=== PATIENT | female | born 1980 | race Hispanic/Latino ===

== ENCOUNTER → 2023-01-31 | Outpatient (CLI) | payer BC ==
[~2023-01-31] MED LIST: FERR159T2 PO; LISI5TAB21 PO; MECL-226 PO; SERT-439 PO; TRAM50TA4 PO
== END | disposition home or self-care (01) ==
LOC: RAH 15:10
PROVIDERS: ATTEND Nurse Practitioner Family
DX: Z12.31 Encounter for screening mammogram for malignant neoplasm of breast (principal)
CPT/HCPCS: 77067

== ENCOUNTER → 2024-07-08 | Outpatient (CLI) | payer BC ==
[~2024-07-08] MED LIST changes: +proPOFol 10 MG/ML 20ML VIAL IV ONE
== END | disposition home or self-care (01) ==
LOC: RAH 12:47
PROVIDERS: ATTEND Obstetrics & Gynecology
DX: Z12.31 Encounter for screening mammogram for malignant neoplasm of breast (principal)
CPT/HCPCS: 77067; J2704; J3490

== ENCOUNTER → 2024-08-08 | Outpatient (CLI) | payer BC ==
[~2024-08-08] MED LIST changes: -proPOFol 10 MG/ML 20ML VIAL IV ONE
--- NOTE | 2024-08-09 09:32 | HMCIMG ---
Exam Type: MAMMO DX UNILATERAL LEFT, US BREAST COMPLETE UNILATERAL Clinical Information: LEFT BREAST US PREFORMED WELL PALPABLE MASS FELT ON THE LEFT BREAST SINCE PT LAST MMG 07/08/2024. PLACED LOCAL MARKER ON AREA. PER PT SHE ONLY FEELS PAIN IN THE AREA WHERE THE LUMP IS BEING FELT. PT DENIES NIPPLE DISCHARGE/SWELLING. SPOT VIEWS TAKEN OF AREA ALONG WITH LT BREAST US. *FAMILY HX OF BREAST CA: PATERNAL AUNT, PATERNAL COUSIN Comparison: July 08, 2024 TECHNIQUE: Mammogram was performed with CC and MLO and ML projections. CAD was performed. CAD shows no worrisome regions. FINDINGS: The breasts are extremely dense, which lowers the sensitivity of mammography. Spot compression views of the upper outer quadrant of the left breast show persistent density at the 3:00 position, underwent a clinically palpable lump region. Left breast ultrasound was also performed. It shows a 3:00 position hypoechoic irregular complex looking probably solid mass measuring at least 2.4 x 2.3 x 1.2 cm, with ill-defined margins. Simple cysts of the 1:00, 10:00 position seen and there are benign-appearing lymph nodes with fatty hilum within the axillary region left side. IMPRESSION: Worrisome mass of the left breast 3:00 position. It is well identified on ultrasound and therefore I recommend ultrasound-guided biopsy. BI-RADS: CATEGORY 4: SUSPICIOUS ABNORMALITY - BIOPSY SHOULD BE CONSIDERED Note: A negative x-ray should not delay biopsy if a dominant or clinically suspicious mass is present, since 8-10% of cancers are not identified by mammography. Dense breasts particularly, may obscure an underlying neoplasm.
== END | disposition home or self-care (01) ==
LOC: RAH 14:03
PROVIDERS: ATTEND Obstetrics & Gynecology
DX: N60.02 Solitary cyst of left breast (principal); N63.25 Unspecified lump in the left breast, overlapping quadrants; R92.342 Mammographic extreme density, left breast; R92.312 Mammographic fatty tissue density, left breast; R92.8 Other abnormal and inconclusive findings on diagnostic imaging of breast; Z80.3 Family history of malignant neoplasm of breast
CPT/HCPCS: 76641; 77065